=== PATIENT | female | born 1950 | race Caucasian/White ===

== ENCOUNTER → 2016-07-10 | Outpatient (CLI) | payer BC ==
[~2016-07-10] MED LIST: B-CO1CAP5 PO; COEN1CAP PO; CRAN1CAP15 PO; CYAN100T PO; KRIL1CAP18 PO; LSN25 PO
--- NOTE | 2016-07-10 11:25 | DIAGNOSTIC IMAGING REPORT ---
LEFT KNEE 3 VIEWS CLINICAL HISTORY: Osteoarthritis of the left knee. COMPARISON: None FINDINGS: Alignment of the left knee is anatomic. There is no fracture or suspicious lesion. There may be a small joint effusion. There is mild osteophytosis of the left knee with preserved joint spaces. IMPRESSION: 1. No acute fracture. 2. Mild osteoarthritis of the left knee. 3. Possible small left knee joint effusion. Electronically signed by: Damien Foy M.D. 07/10/2016 11:23 AM
--- NOTE | 2016-07-10 11:31 | DIAGNOSTIC IMAGING REPORT ---
RIGHT KNEE 3 VIEWS CLINICAL HISTORY: Right knee pain COMPARISON: None. DISCUSSION: No acute fractures are visualized. There are no erosive or destructive changes. There are osteoarthritic changes. There are lateral joint compartment spurs and dorsal patellar spurs. IMPRESSION: Mild to moderate osteoarthritic change. No acute fracture. Electronically signed by: Steven Marino M.D. 07/10/2016 11:29 AM
== END | disposition home or self-care (01) ==
LOC: C.RADBC 10:52
PROVIDERS: ATTEND Internal Medicine
DX: M17.0 Bilateral primary osteoarthritis of knee (principal)

== ENCOUNTER → 2016-12-04 | Outpatient (CLI) | payer BC ==
[2016-12-04 10:52] LABS: BASO % 0.4 %; BASO ABS # 0.02 K/uL (0-0.2); COMPLETE YES; EOS % 4.4 %; HEMATOCRIT 42.5 % (37-47); LYMPH % 40.6 %; LYMPH ABS # 1.86 K/uL (1.2-3.4); MEAN CELL VOLUME 90.2 fL (80-100); MEAN CORPUSCULAR HEMOGLOBIN 30.4 pg (25-34); MEAN CORPUSCULAR HGB CONC 33.6 g/dl (32-36); MEAN PLATELET VOLUME 10.6 fL (7.4-10.4); MONO % 9.2 %; NEUT % 45.4 %; PLATELET COUNT 219 K/uL (130-400); RED BLOOD COUNT 4.71 M/uL (4.2-5.4); WHITE BLOOD COUNT 4.58 K/uL (4.8-10.8)
[2016-12-04 11:33] LABS: ALT/SGPT 42 U/L (12-78); AST/SGOT 24 U/L (15-37); BLOOD UREA NITROGEN 14 mg/dl (7-18); BUN/CREATININE RATIO 14.4 (10-20); CALCIUM 8.7 mg/dl (8.5-10.1); CARBON DIOXIDE 27 mmol/L (21-32); CHLORIDE 111 mmol/L (98-107); CHOLESTEROL 252 mg/dl (0-200); GLUCOSE 97 mg/dl (70-99); POTASSIUM 4.2 mmol/L (3.5-5.1); SODIUM 145 mmol/L (136-145)
[2016-12-04 11:34] LABS: ALB/GLOB RATIO 1.2 (0.9-2); ALKALINE PHOSPHATASE 68 U/L (45-117); CHOLESTEROL/HDL RATIO 4.3; HDL CHOLESTEROL 59 mg/dl; LDL CHOLESTEROL CALCULATED 166 mg/dl; TRIGLYCERIDES 135 mg/dl (0-150); VERY LOW DENSITY LIPOPROT CALC 27 mg/dl
--- NOTE | 2016-12-10 10:39 | CODING QUERY MEDICAL NECESSITY ---
SUPPORTING DIAGNOSIS NEEDED Dr. Denis, A supporting diagnosis is required for the test/procedure performed on this patient in order for us to be reimbursed by the patient's insurance. Please provide a supporting diagnosis for the following test/procedure listed below next to the test name along with your signature. *If there is no additional diagnosis for this patient that would support the following test/procedure please document that below next to the test/procedure. Test(s)/Procedure(s) that require a supporting diagnosis: * ([id number]) VITAMIN D ASSAY DIAGNOSIS: DATE OF SERVICE: 12/04/16 Provider Signature: Date: Thank you Milton Sarabia [facility] Information Management Once completed, please kindly fax back to [phone] For questions please call [phone]
== END | disposition home or self-care (01) ==
LOC: C.LABBC 07:44
PROVIDERS: ATTEND Internal Medicine
DX: M17.10 Unilateral primary osteoarthritis, unspecified knee (principal); Z78.0 Asymptomatic menopausal state; Z90.5 Acquired absence of kidney

== ENCOUNTER → 2017-02-03 | Outpatient (CLI) | payer BC, OTHER ==
--- NOTE | 2017-02-03 14:05 | MAMMOGRAPHY REPORT ---
BILATERAL DIGITAL SCREENING MAMMOGRAM WITH CAD: 02/03/2017 CLINICAL HISTORY: Routine screening. Patient has no complaints. TECHNIQUE: Bilateral CC and MLO views were obtained. Current study was also evaluated with a Compute r Aided Detection (CAD) system. COMPARISON: Comparison is made to exams dated: 02/01/2016 mammogram, 01/30/2015 mammogram, 01/28/2014 m ammogram, 11/20/2012 ultrasound biopsy, 11/13/2012 ultrasound, and 11/13/2012 mammogram - [facility]. BREAST COMPOSITION: There are scattered areas of fibroglandular density in both breasts. FINDINGS: There are stable benign coarse calcifications and punctate microcalcifications in the breas ts. A stable metallic biopsy marker in the 12:00 anterior left breast. No new suspicious mass, arch itectural distortion or cluster of microcalcifications is seen. IMPRESSION: ACR BI-RADS CATEGORY 1: NEGATIVE There is no mammographic evidence of malignancy. A 1 year screening mammogram is recommended. The pa tient will receive written notification of the results. Approximately 10% of breast cancers are not detected with mammography. A negative mammographic report should not delay biopsy if a clinically suggestive mass is present. Mariposa De M.D. ay/:02/03/2017 10:17:34 [employer] Internship: Saritha KENNEDY)(), [facility] letter sent: Normal 1/2 BI-RADS Code: ACR BI-RADS Category 1: Negative
== END | disposition home or self-care (01) ==
LOC: C.MAMM 08:44
PROVIDERS: ATTEND Internal Medicine
DX: Z12.31 Encounter for screening mammogram for malignant neoplasm of breast (principal)

== ENCOUNTER → 2017-08-05 | Outpatient (CLI) | payer BC ==
--- NOTE | 2017-08-05 15:18 | DIAGNOSTIC IMAGING REPORT ---
R ANKLE MIN 3 VIEWS CLINICAL HISTORY: Chronic bilateral ankle pain. COMPARISON: Right ankle radiographs May 24, 2008. FINDINGS: Alignment of the right ankle is anatomic. Talar dome is intact. No fracture or suspicious lesion. There is extensive plantar calcaneal spurring and minimal posterior calcaneal spurring. A few soft tissue calcifications are of no clinical significance. There are suspected lower extremity varicosities. IMPRESSION: 1. No acute fracture. 2. Extensive plantar calcaneal spurring and minimal posterior calcaneal spurring. Electronically signed by: Damien Foy M.D. 08/05/2017 3:17 PM Dictated Date/Time: 08/05/2017 3:16 PM
--- NOTE | 2017-08-05 15:29 | DIAGNOSTIC IMAGING REPORT ---
L ANKLE MIN 3 VIEWS CLINICAL HISTORY: Left ankle pain COMPARISON: None. DISCUSSION: No fractures or dislocations are visualized. There is a prominent plantar calcaneal spur. Degenerative changes are present within the midfoot. IMPRESSION: Calcaneal spurring. No acute fractures identified. Electronically signed by: Steven Marino M.D. 08/05/2017 3:28 PM Dictated Date/Time: 08/05/2017 3:27 PM
== END | disposition home or self-care (01) ==
LOC: C.RDSM 08:00
PROVIDERS: ATTEND Physician Assistant
DX: M25.571 Pain in right ankle and joints of right foot (principal); M25.572 Pain in left ankle and joints of left foot; M77.31 Calcaneal spur, right foot; M77.32 Calcaneal spur, left foot

== ENCOUNTER → 2018-02-09 | Outpatient (CLI) | payer BC ==
--- NOTE | 2018-02-09 15:11 | MAMMOGRAPHY REPORT ---
BILATERAL DIGITAL SCREENING MAMMOGRAM TOMOSYNTHESIS WITH CAD: 02/09/2018 CLINICAL HISTORY: Routine screening. Patient has no complaints. TECHNIQUE: The study was acquired using full field digital technology and interpreted from soft copy. Breast tomosynthesis in addition to standard 2D mammography was performed. Current study was also ev aluated with a Computer Aided Detection (CAD) system. COMPARISON: Comparison is made to exams dated: 02/03/2017 mammogram, 02/01/2016 mammogram, 01/30/2015 m ammogram, 01/28/2014 mammogram, 11/20/2012 ultrasound biopsy, and 11/13/2012 ultrasound - [facility]. BREAST COMPOSITION: There are scattered areas of fibroglandular density in both breasts. FINDINGS: There are a few scattered benign rim calcifications in the breasts. Stable ribbon-shaped b iopsy marker clip in the 12:00 anterior left breast. No developing mass, architectural distortion or cluster of suspicious microcalcifications is seen in either breast. IMPRESSION: ACR BI-RADS CATEGORY 2: BENIGN There is no mammographic evidence of malignancy. A 1 year screening mammogram is recommended.( [id number]) The patient will receive written notification of the results. Some breast cancers are not detected with mammography. A negative mammographic report should not john y biopsy if a clinically suggestive mass is present. Mariposa De M.D. ay/:02/09/2018 12:41:41 [employer] Retrofitting Technician: RT Rudy(Mango)(M), [facility] letter sent: Normal 1/2 BI-RADS Code: ACR BI-RADS Category 2: Benign
== END ==
LOC: C.MAMM 08:49
PROVIDERS: ATTEND Internal Medicine
DX: Z12.31 Encounter for screening mammogram for malignant neoplasm of breast (principal)